=== PATIENT | female | born 2005 | race Caucasian/White ===

== ENCOUNTER 2024-10-01 07:48 | Emergency (ER) | payer SELFPAY ==
[~2024-10-01] VITALS: Ht 162.6 cm; Wt 73.0 kg
[2024-10-01] MEDS: ACETAMINOPHEN 325MG TABLET PO ONE (08:00)
[2024-10-01] MEDS: KETAMINE HCL 50 MG/ML 10ML IV ONE (10:09)
[2024-10-01] MEDS: PROPOFOL 200MG/20ML VIAL IV ONE (10:09)
[2024-10-01 10:16] VITALS: O2SAT 100
[2024-10-01] MEDS ORDERED: IBUP-2028 PO (11:07)
[2024-10-01 12:32] VITALS: BP 123/74; PULSE 65; RESP 15; TEMP 37; O2SAT 100
== END 2024-10-01 12:35 | disposition home or self-care (01) ==
LOC: ER 07:48
DX: S43.014A Anterior dislocation of right humerus, initial encounter (principal); R05.9 Cough, unspecified; R07.9 Chest pain, unspecified; X58.XXXA Exposure to other specified factors, initial encounter; Y93.89 Activity, other specified; Y92.89 Other specified places as the place of occurrence of the external cause; Y99.8 Other external cause status
CPT/HCPCS: 73030; 94664; 93005; 23650; 99152; 99285; J3490; J2704; Z7610 ×4; A4565; A4606